=== PATIENT | female | born 1960 | race Caucasian/White ===

== ENCOUNTER → 2022-12-25 | Outpatient (CLI) | payer MEDICAID, SELFPAY ==
[2022-12-25 07:58] LABS: Anion Gap 5 (5-15); BUN 19 mg/dL (7-18); BUN/Creat Ratio 19.3 RATIO (10-20); Calcium,Total 8.5 mg/dL (8.5-10.1); Chloride 108 mmol/L (98-107); Creatinine, Serum 0.99 mg/dL (0.55-1.02); EST Glomerular Filtration Rate 61 mL/min (>60); Est Glom Filt Rate - Afr Amer 74 mL/min (>60); Glucose 105 mg/dL (74-106); Potassium 3.5 mmol/L (3.5-5.1); Sodium Level 142 mmol/L (136-145)
== END | disposition home or self-care (01) ==
LOC: LAB 07:10
PROVIDERS: PCP Family Medicine; Referring Provider Internal Medicine Cardiovascular Disease; Visit Provider Internal Medicine Cardiovascular Disease
DX: I42.8 Other cardiomyopathies (principal); I44.7 Left bundle-branch block, unspecified; I10 Essential (primary) hypertension
CPT/HCPCS: 36415; 80048

== ENCOUNTER → 2023-01-16 | Outpatient (CLI) | payer MEDICAID, SELFPAY ==
--- NOTE | 2023-01-16 12:56 | CT_ITS ---
STUDY: CT CHEST WITH CONTRAST REASON FOR EXAM: Female, 62 years old. OTHER ABN CVS TEST RADIATION DOSAGE (If Supplied By Facility): CTDIvol = ( 31 ) mGy, DLP = ( 1059.75 ) mGycm TECHNIQUE: Transaxial imaging was performed following intravenous administration of IV 75mL Isovue-[id number]. Individualized dose optimization techniques were used for this CT. COMPARISON: No relevant priors. FINDINGS: CHEST The lungs are normal. There is no demonstrated pleural abnormality. Normal heart and pericardium. Normal mediastinum. Normal hilar regions. Normal unenhanced pulmonary arteries. Normal aorta arch and descending thoracic aorta. There are mild degenerative changes of the thoracic spine. There is no demonstrated abnormality of the visualized upper abdomen. CT/Limited Chest CT Cardiac Only IMPRESSION: Normal enhanced CT chest T abdomen examination. Electronically Signed: Rei Henry MD at 11:29 EDT ,
[2023-01-16 13:09] VITALS: BP 135/83; PULSE 70; RESP 16; O2SAT 96; BMI 26.5
[2023-01-16 13:21] VITALS: PULSE 70
[2023-01-16] MEDS: Nitroglycerin SL (ED/IMG/CATH) 0.4 MG TABLET SL (13:21)
[2023-01-16 13:26] VITALS: BP 128/76; PULSE 70; RESP 14; O2SAT 96
--- NOTE | 2023-01-17 07:43 | CCTA.WCONT ---
CCTA w/Cont Coronary Arteries Date of Study:: 01/16/23 Abnormal stress test Coronary Calcium Scoring: High-resolution Computed Tomographic imaging of the chest was performed on [01/16/2023], with particular attention paid to the coronary arteries. Intravenous contrast agent was administered per protocol and images reconstructed and displayed. LEFT MAIN CORONARY ARTERY: This arose from the left coronary cusp and bifurcating to left anterior descending artery and left circumflex artery. No significant stenosis or atherosclerotic plaquing was noted. [] LEFT ANTERIOR DESCENDING CORONARY ARTERY: This was a medium size vessel coursing towards the apex of the ventricle. Minimal atherosclerotic plaquing was noted in this vessel [] LEFT CIRCUMFLEX CORONARY ARTERY: This was a large likely codominant vessel. No significant atherosclerotic plaquing was noted in this vessel. [] RIGHT CORONARY ARTERY: This vessel arose from the right coronary cusp and course giving off a posterior descending artery and posterolateral vessel. No significant atherosclerotic plaquing was noted. [] THORACIC AORTA: Normal size [] PULMONARY ARTERY: Normal size [] LEFT ATRIUM/APPENDAGE: [] MITRAL VALVE: [] AORTIC VALVE: [place] CORONARY CALCIUM SCORE: Not done Conclusion: No significant atherosclerotic plaquing noted in this study. []
== END | disposition home or self-care (01) ==
LOC: CT 12:36
PROVIDERS: PCP Family Medicine; Referring Provider Internal Medicine Cardiovascular Disease; Visit Provider Internal Medicine Cardiovascular Disease
DX: R94.31 Abnormal electrocardiogram [ECG] [EKG] (principal); I42.8 Other cardiomyopathies; C50.919 Malignant neoplasm of unspecified site of unspecified female breast; R94.39 Abnormal result of other cardiovascular function study; I44.7 Left bundle-branch block, unspecified; F17.200 Nicotine dependence, unspecified, uncomplicated; I10 Essential (primary) hypertension
CPT/HCPCS: 75574; 76380; Q9967